=== PATIENT | female | born 1970 | race Caucasian/White ===

== ENCOUNTER 2016-10-16 17:32 | Emergency (ER) | payer OTHER ==
[~2016-10-16] VITALS: Ht 162.6 cm; Wt 69.9 kg
[~2016-10-16 17:32] MED LIST: AMOXICILLIN500 MG PO; CIPRO 500MG (E500 MG PO; DAYQUIL COLD/FL1 SGL PO; GOOD SENSE IBU200 MG PO; Magic Mouthwash PO; PERCOCET 325 MG1 TA2 PO; PREDNISONE10 M2 PO; TRAMADOL HCL50 M1 PO
[2016-10-16] MEDS ORDERED: LIDOCAINE1 EACH TOP (19:16)
[2016-10-16] MEDS ORDERED: CITRANATAL HAR1 EACH PO (19:16)
[2016-10-16] MEDS ORDERED: ACETAMINOPHEN500 M4 PO (19:16)
--- NOTE | 2016-10-16 19:38 | ED HEAD/FACIAL INJ COMPLAINT ---
History of Present Illness General Chief Complaint: General Adult Stated Complaint: PT HAS SHOOTING PAIN IN THE TOP OF HER HEAD Source: patient Exam Limitations: no limitations Vital Signs & Intake/Output Vital Signs & Intake/Output Vital Signs Date Time Temp Pulse Resp B/P Pulse O2 O2 Flow FiO2 Ox Delivery Rate 10/16 1950 98.6 84 18 110/72 98 Room Air 10/16 1810 98.7 86 18 111/72 98 Room Air Allergies Coded Allergies: NO KNOWN ALLERGIES (08/05/15) Reconcile Medications Acetaminophen 500 MG TABLET 1 TAB PO PRN PAIN (Reported) Lidocaine 5 % ADH..PATCH 1 PAT TOP DAILY PAIN (Reported) Pnv59/Iron,Carb&Fum/FA/Dss/Dha (Citranatal [place] Capsule) 27 MG IRON-1 MG-50 MG-260 MG CAPSULE 1 CAP PO DAILY (Reported) Triage Note: RECEIVED 45 YO FEMALE SENT TO ED BY DR MCQUEEN FOR CT SCAN OF HEAD. PT C/O SHARP PAIN TO TOP OF HEAD STARTED WEDNESDAY. PAIN NOW PROGRESSED TO FRONTAL PAIN RADIATING ABOVE R EYE. NO BLURRY VISION, MILD R EAR PAIN. PINCHED NERVE VS M.S. ACCORDING TO DR MCQUEEN. PT 36 WEEKS , DUE 11/15/16. Triage Nurses Notes Reviewed? yes : Yes Patient currently breastfeeds: No HPI: Patient presents for evaluation of severe right sided sharp stabbing pains began abruptly on Wednesday. Patient states that the pains are sharp stabbing pains located over the right parietal region superiorly that last a few seconds at a time. They occur every 10-15 minutes. Patient is currently 36 weeks and has discussed this with her DIRECTOR OUTPATIENT SERVICES doctor who placed her on a lidocaine patch. In addition she has been taking intermittent doses of Tylenol with some relief. She saw her DIRECTOR OUTPATIENT SERVICES doctor, Dr. Mcqueen, again today and was told to go to the emergency department because the pains weren't resolving. Patient denies any associated trauma. Today the pain also seemed to encroach above the right eyebrow. Past History Travel History Traveled to [place] past 21 day No Medical History Any Pertinent Medical History? see below for history Neurological: NONE EENT: NONE Cardiovascular: NONE Respiratory: NONE Gastrointestinal: NONE Hepatic: NONE Renal: NONE Musculoskeletal: NONE Psychiatric: NONE Endocrine: NONE Blood Disorders: NONE Cancer(s): NONE DATA PROCESSING MANAGER/Reproductive: NONE Tetanus Vaccine: 08/03/13 Surgical History Surgical History: non-contributory Psychosocial History Who do you live with Spouse Services at Home None What is your primary language Estonian Tobacco Use: Never used Family History Family History, If Any: Relation not specified for: Breast cancer in mother Hx Contributory? No Review of Systems Review of Systems Constitutional: Reports: no symptoms. EENTM: Reports: no symptoms. Respiratory: Reports: no symptoms. Cardiovascular: Reports: no symptoms. GI: Reports: no symptoms. Genitourinary: Reports: no symptoms. Musculoskeletal: Reports: no symptoms. Skin: Reports: see HPI. Neurological/Psychological: Reports: no symptoms. Hematologic/Endocrine: Reports: no symptoms. Immunologic/Allergic: Reports: no symptoms. All Other Systems: Reviewed and Negative Physical Exam Physical Exam General Appearance: see below Cranial Nerves: see below Comments: Gen.: Well-nourished, well-developed, no acute respiratory distress. Head: Normocephalic, atraumatic. No lesions in the area of pain. Right hoahaoism nontender with normal pulse. Eyes: Normal inspection bilaterally, PERRLA, EOMI Ears: Normal inspection bilaterally Nose: Normal inspection Throat/mouth : Moist mucosa Neck: Supple, full range of motion, no goiter, nontender Heart: Regular rate and rhythm Lungs: Respirations unlabored Back: Normal range of motion Extremities: Normal range of motion grossly Neurologic: Cranial nerves 2 through 12 intact, speech is clear, gait is stable Skin: warm and dry Psychiatric: Calm, cooperative, no apparent delusions or hallucinations Progress Differential Diagnosis: neuralgia, muscle spasms Plan of Care: Tylenol, PMD follow-up Comments: Unfortunately I was unable to prescribe the usual neuropathic pain medications given the patient's . Departure Departure Disposition: HOME OR SELF CARE Condition: Stable Clinical Impression Primary Impression: Neuropathy Referrals: DEANNA BOOTH,DUY Coulter (PCP/Family) Additional Instructions: Tylenol every 4-6 hours as discussed as needed for pain. Continue the lidocaine patches. Follow-up with your primary care doctor for reevaluation and potential referral to a neurology specialist. Unfortunately I was unable to find a medication to address your pain given your . Return if any concerns or sudden worsening. Thank you for choosing the [facility] Department for your care. It was a pleasure to serve you today. Vernon Medrano M.D. [facility] Departure Forms: Customer Survey General Discharge Information
[2016-10-16 19:50] VITALS: BP 110/72
== END 2016-10-16 19:51 ==
LOC: ERH 17:32
DX: O99.89 Other specified diseases and conditions complicating pregnancy, childbirth and the puerperium (principal); G62.9 Polyneuropathy, unspecified; Z3A.36 36 weeks gestation of pregnancy

== ENCOUNTER 2016-11-13 19:22 | Inpatient (IN) | payer OTHER ==
[~2016-11-13] VITALS: Ht 162.6 cm; Wt 69.9 kg
[~2016-11-13 19:22] MED LIST changes: +ACETAMINOPHEN500 M4 PO; +CITRANATAL HAR1 EACH PO; +LIDOCAINE1 EACH TOP
[2016-11-13 20:43] VITALS: BP 115/56
[2016-11-13 21:04] LABS: ABSOLUTE BASOPHIL COUNT 0 /CUMM (0.0-0.2); ABSOLUTE EOSINOPHIL COUNT 0.1 /CUMM (0.0-0.7); ABSOLUTE GRANULOCYTE CT 7.2 /CUMM (1.4-6.5); ABSOLUTE LYMPH COUNT 2.6 /CUMM (1.2-3.4); BASOPHIL % 0.4 % (0.0-2.0); EOSINOPHIL % 0.6 % (0-5); GRANULOCYTE % 66.5 % (42.2-75.2); MEAN CORPUSCULAR HGB 29.1 PG (27.0-31.0); MEAN CORPUSCULAR HGB CONC 33.4 G/DL (33.0-37.0); MEAN CORPUSCULAR VOLUME 87.1 FL (81.0-99.0); PLATELET COUNT 152 /CUMM (130-400); RBC DISTRIBUTION WIDTH 13.6 % (11.5-14.5); RED BLOOD CELL CT 3.56 /CUMM (4.20-5.40); WHITE BLOOD CELL COUNT 10.9 /CUMM (4.8-10.8)
[2016-11-13 21:46] LABS: MEAN PLATELET VOLUME 12.1 FL (7.4-10.4)
--- NOTE | 2016-11-14 16:21 | History & Physical ---
General Information and HPI MD Statement: I have seen and personally examined SABINE PAGE and documented this H&P. The patient is a 45 year old female at [39] weeks and [2] days gestation who presented with a chief complaint of [PROM]. History of Present Illness: 45YO WITH PROM AT TERM; CARE COMPLETE AND REMARKABLE FOR RhNEG RECEIVING RhOGAM AND ELEVATED 1HR GCT AND NORMAL 3HR GTT. AMNISURE POSITIVE LAST NIGHT; GBS NEGATIVE. Allergies/Medications Allergies: Coded Allergies: NO KNOWN ALLERGIES (NO 11/13/16) Home Med list Acetaminophen 500 MG TABLET 1 TAB PO PRN PAIN (Reported) Lidocaine 5 % ADH..PATCH 1 PAT TOP DAILY PAIN (Reported) Pnv59/Iron,Carb&Fum/FA/Dss/Dha (Citranatal [place] Capsule) 27 MG IRON-1 MG-50 MG-260 MG CAPSULE 1 CAP PO DAILY (Reported) Past History document review attorney History : 6 Para: 3 Last Menstrual Period: 02/09/16 Estimated Delivery Date: 11/15/16 Past document review attorney History: non-contributory Medical History Neurological: NONE EENT: NONE Cardiovascular: NONE Respiratory: NONE Gastrointestinal: NONE Hepatic: NONE Renal: NONE Musculoskeletal: NONE Psychiatric: NONE Endocrine: NONE Blood Disorders: NONE Cancer(s): NONE COST ESTIMATING MANAGER/Reproductive: NONE Surgical History Pertinent Surgical History: non-contributory Past Family/Social History Family History Relations & Conditions if any Relation not specified for: Breast cancer in mother Psychosocial History Who Do You Live With? self Primary Language: Bhutanese Smoking Status: Never Smoked Living Will? unknown Power of Security Police Officer/HCP? unknown Review of Systems Review of Systems Constitutional: Reports: no symptoms. EENTM: Reports: no symptoms. Cardiovascular: Reports: no symptoms. Respiratory: Reports: no symptoms. GI: Reports: no symptoms. Genitourinary: Reports: no symptoms. Musculoskeletal: Reports: no symptoms. Skin: Reports: no symptoms. Neurological/Psychological: Reports: no symptoms. Hematologic/Endocrine: Reports: no symptoms. Immunologic/Allergic: Reports: no symptoms. All Other Systems: Reviewed and Negative Exam & Diagnostic Data Last 24 Hrs of Vital Signs/I&O Vital Signs Date Time Temp Pulse Resp B/P B/P Pulse O2 O2 Flow FiO2 Mean Ox Delivery Rate 11/13 2042 115/56 Intake & Output 11/14 1600 11/14 0800 11/14 0000 Intake Total Output Total Balance Patient 154 lb Weight Obstetric Exam Wgt Gained During : 25 Pelvimetry: GYNECOID Dilation (cm): 0 Effacement (%): 0 Station: -2 Membranes: SROM Fluid: clear Fundal Height (cm): 40 Multiple Gestation? No Contractions: NONE Patient for Induction? Yes Sanders Score Sanders Score Response Value Cervix Position: posterior 0 Cervix Consistency: medium 1 Cervix Effacement: 0-30% 0 Cervix Dilation: closed 0 Cervix Station: -2 1 Total 2 Physical Exam: HEENT: NCAT CHEST: CTAB CV: NL S1S2 ABD: GRAVID, CEPHALIC EFW 7 EXT: NO C/C/E Labs Blood Type & Rh: B NEG Antibody Screen: NEG Hct/Hgb & Platelets #1: Hct/Hgb & Platelets #2: Rubella: IMM VDRL #1: NR VDRL #2: NR HbsAg: NEG HIV #1: NEG HIV #2 NEG 1 Hr P 3 Hr P/77/72 Group B Strep: NEG Initial Ultrasound: WNL Anatomy Ultrasound: WNL Genetic Testing: NEG Last 24 Hrs of Labs/Emmanuel: Laboratory Tests 11/13/162049: CBC w Diff NO MAN DIFF REQ, RBC 3.56 L, MCV 87.1, MCH 29.1, RDW 13.6, MPV 12.1 H, Gran % 66.5, Lymphocytes % 23.7, Monocytes % 8.8, Eosinophils % 0.6, Basophils % 0.4, Absolute Granulocytes 7.2 H, Absolute Lymphocytes 2.6, Absolute Monocytes 1.0 H, Absolute Eosinophils 0.1, Absolute Basophils 0, PUBS MCHC 33.4, Urine Color YEL, Urine Clarity CLEAR, Urine pH 6.0, Ur Specific [place] 1.020, Urine Protein TRACE H, Urine Ketones TRACE H, Urine Nitrite NEG , Urine Bilirubin NEG, Urine Urobilinogen 2.0 H, Ur Leukocyte Esterase SMALL H , Ur Microscopic SEDIMENT EXAMINED, Urine RBC RARE, Urine WBC RARE, Ur Epithelial Cells RARE, Urine Bacteria FEW H, Urine Mucus FEW, Urine Hemoglobin MOD H, Urine Glucose NEG 11/13/161944: Membrane Rupture POSITIVE Assessment/Plan Assessment/Plan: 40WEEK SROM POOR SANDERS SCORE NEG GBS MISOPROSTIL RIPENING As Ranked By This Provider Problem List: 1. Core Measures/Miscellaneous Venous Thromboembolism VTE Risk Factors: Age > 40, / VTE Contraindications: No Contraindications VTE Diagnosis: No Beta Mala Is Beta Mala a Home Med? No Antibiotics Is Patient on Antibiotics? No
--- NOTE | 2016-11-14 20:04 | Labor & Delivery Summary ---
Delivery Summary Vaginal Delivery: Vaginal: spontaneous Episiotomy/Lacerations: Episiotomy/Lacerations: episiotomy Type: Right mediolateral Repair: Layers of 3-0 Polysorb Anesthesia: Local Placenta: Placenta: spontanteous, normal, 3 vessel Baby's Weight: 7/10 Apgars - 1 Min: 9 Apgars - 5 Min: 9
[2016-11-15 08:59] LABS: ABSOLUTE BASOPHIL COUNT 0.1 /CUMM (0.0-0.2); ABSOLUTE EOSINOPHIL COUNT 0.1 /CUMM (0.0-0.7); ABSOLUTE GRANULOCYTE CT 16.4 /CUMM (1.4-6.5); ABSOLUTE LYMPH COUNT 3.2 /CUMM (1.2-3.4); ABSOLUTE MONOCYTE COUNT 1.2 /CUMM (0.10-0.60); BASOPHIL % 0.4 % (0.0-2.0); EOSINOPHIL % 0.4 % (0-5); GRANULOCYTE % 78.2 % (42.2-75.2); HEMATOCRIT 29.5 % (37-47); MEAN CORPUSCULAR HGB 29.2 PG (27.0-31.0); MEAN CORPUSCULAR HGB CONC 33.3 G/DL (33.0-37.0); MEAN CORPUSCULAR VOLUME 87.7 FL (81.0-99.0); MEAN PLATELET VOLUME 12.9 FL (7.4-10.4); PLATELET COUNT 174 /CUMM (130-400); RBC DISTRIBUTION WIDTH 13.3 % (11.5-14.5); RED BLOOD CELL CT 3.37 /CUMM (4.20-5.40)
[2016-11-15 09:24] LABS: WHITE BLOOD CELL COUNT 20.9 /CUMM (4.8-10.8)
--- NOTE | 2016-11-15 12:45 | PN- Post Delivery/GYN ---
Subjective Subjective: NO C/O Review of Systems: NEG Objective Last 24 Hrs of Vital Signs/I&O VSS Physical Exam: FF EXT NT Assessment/Plan Assessment/Plan S/P PPD1 STABLE ROUTINE PP CARE Problem List: 1.
[2016-11-16] MEDS ORDERED: IBUPROFEN800 M1 PO (12:26)
== END 2016-11-16 13:11 | DRG 560 ==
LOC: CBCO 19:22 → GNO 20:33
PROVIDERS: Obstetrics & Gynecology; ADMIT Specialist
PROC: 0W8NXZZ Division of Female Perineum, External Approach (ICD-10-PCS; principal; 2016-11-14)
PROC: 10E0XZZ Delivery of Products of Conception, External Approach (ICD-10-PCS; principal; 2016-11-14)
DX: O80 Encounter for full-term uncomplicated delivery (principal); Z3A.39 39 weeks gestation of pregnancy; Z37.0 Single live birth
CPT/HCPCS: GNOS; 81001; 84112; 86920; 86922; G0463; J1885; J2405; J2790; J7120